=== PATIENT | male | born 1945 | race Caucasian/White ===

== ENCOUNTER → 2017-04-01 | Outpatient (CLI) | payer BC ==
[~2017-04-01] MED LIST: BARIUM SUSPENSION 2.1% (VANILLA SILQ) 450 ML PO ONE; CATHETER FLUSH 10 ML SYR IV PRN; DIFLORASONE DIA TOP; IOHEXOL 350 MG/ML 100 ML (OMNIPAQUE 350) VIAL IV ONE; LEVO75TA6 PO; NS 100 ML (IVPB) BAG IV ONE; TEST5GEL6 TD
[2017-04-01 09:52] LABS: ANION GAP 9 MMOL/L (5-14); BLOOD UREA NITROGEN 11 MG/DL (7-18); BUN/CREATININE RATIO 10; CALCIUM 9.6 MG/DL (8.5-10.1); CARBON DIOXIDE 25 MMOL/L (21-32); CHLORIDE 105 MMOL/L (98-107); CREATININE SERUM 1.14 MG/DL (0.60-1.30); GFR ESTIMATED > 60; GLUCOSE 105 MG/DL (70-105); POTASSIUM 4.7 MMOL/L (3.6-5.0); SODIUM 139 MMOL/L (135-145)
--- NOTE | 2017-04-01 11:14 | Diagnostic Imaging Report ---
PROCEDURE: CT of the abdomen with and without contrast and CT of the pelvis with contrast. TECHNIQUE: Precontrast acquisitions were acquired through the abdomen. Multiple contiguous axial images were obtained through the abdomen and pelvis after administration of intravenous contrast. INDICATION: Followup pancreatic lesion. COMPARISON: 11/04/2013. FINDINGS: Included portions of the lung bases are clear. CT abdomen: Again identified is multicystic lesion posterior to the pancreatic head and uncinate process. It measures approximately 3.3 x 6.5 cm in maximal axial dimension by approximately 5.8 cm in maximal CC dimension. This is in comparison to similar re-measurements on exam dated 11/04/2013 of 3 x 6 x 5.1, respectively. There is persistent prominence of the pancreatic duct. At its widest, the pancreatic duct measures approximately 10 mm on today's exam. This is essentially stable compared to 9-10 mm on prior study. There is no CT evidence of intrahepatic biliary ductal dilatation. No focal hepatic mass type lesions are seen. The adrenal glands, kidneys, and spleen have a normal CT appearance. Small bowel loops are nondistended. There are a few scattered colonic diverticula, but no CT evidence of acute diverticulitis. Patient is status post interval sigmoidectomy. There is a fat-containing periumbilical hernia. Ostium measures approximately 1.7 cm in diameter. Normal appendix cannot be adequately identified, but there is no pericecal inflammation. There is no loculated fluid collection, free fluid, nor free air within the abdomen. No abnormal mesenteric or retroperitoneal adenopathy is seen. There is mild calcified aortic and arterial atherosclerosis. Bony structures show no acute abnormalities. CT pelvis: Urinary bladder is unopacified. Prostate is enlarged. It measures approximately 5.7 x 4.4 cm. There is no loculated fluid collection, free fluid, nor free air within the pelvis. No abnormal lymph nodes are seen. Bony structures show no acute abnormalities. IMPRESSION: 1. Multicystic lesion posterior to the pancreatic head and uncinate process. This is felt to most likely be of pancreatic origin and may represent cystic pancreatic neoplasm, such as serous cystadenoma. There appears to have been some slight interval increase in size since prior exam. 2. Stable dilatation of the pancreatic duct. 3. Interval sigmoidectomy. 4. Fat-containing periumbilical hernia. 5. Prostatomegaly. Dictated by: Dictated on workstation # [id number]
== END ==
LOC: RAD 08:39
PROVIDERS: ATTEND Family Medicine
DX: K86.89 Other specified diseases of pancreas (principal); N40.1 Benign prostatic hyperplasia with lower urinary tract symptoms; K42.9 Umbilical hernia without obstruction or gangrene; Z85.09 Personal history of malignant neoplasm of other digestive organs
CPT/HCPCS: 36415; 74178; 80048

== ENCOUNTER → 2018-08-17 | Outpatient (CLI) | payer BC ==
[~2018-08-17] MED LIST changes: -BARIUM SUSPENSION 2.1% (VANILLA SILQ) 450 ML PO ONE; -CATHETER FLUSH 10 ML SYR IV PRN; +HOLD METFORMIN - RECEIVED CONTRAST 20 ML VIAL IV SCH; -NS 100 ML (IVPB) BAG IV ONE
--- NOTE | 2018-08-17 13:46 | Diagnostic Imaging Report ---
PROCEDURE: CT abdomen and pelvis with contrast. TECHNIQUE: Multiple contiguous axial images were obtained through the abdomen and pelvis after administration of intravenous contrast. Auto Exposure Controls were utilized during the CT exam to meet ALARA standards for radiation dose reduction. INDICATION: Followup pancreatic mass. COMPARISON: 04/01/2017. FINDINGS: Multiseptated cystic mass epicenter at the uncinate process and caudal aspect of the pancreatic head in aggregate measured 6.4 cm transverse x 3.3 cm maximal AP thickness and is not appreciably changed dating back to 2013 favoring a serous cystadenoma. Some ectasia of the pancreatic duct itself is not significantly changed at the neck measuring 9 mm unchanged. No evidence for pancreatitis. The adrenals are negative. The gallbladder is stable. No bile duct dilatation. There is a small hiatal hernia. No stone disease. Spleen and adrenals are negative. The kidneys are unobstructed. There is a fatty umbilical hernia chronic. There is no bowel obstruction. There is no ascites, abscess, hematoma, or other fluid collection. Prostate indents the bladder base unchanged. No abdominal pelvic mesenteric or retroperitoneal adenopathy. No acute bony pathology. IMPRESSION: Multiseptated cystic pancreatic lesion unchanged from 2013, most likely a serous cystadenoma. No change in pancreatic ductal dilatation. No new or soft tissue density mass. No adenopathy, no ascites, and no acute finding. Dictated by: Dictated on workstation # [id number]
== END ==
LOC: RAD 12:45
PROVIDERS: ATTEND Family Medicine
DX: K86.2 Cyst of pancreas (principal)
CPT/HCPCS: 74177

== ENCOUNTER → 2021-05-09 | Outpatient (CLI) | payer BC ==
[~2021-05-09] MED LIST changes: -HOLD METFORMIN - RECEIVED CONTRAST 20 ML VIAL IV SCH; -IOHEXOL 350 MG/ML 100 ML (OMNIPAQUE 350) VIAL IV ONE
--- NOTE | 2021-05-09 12:57 | Diagnostic Imaging Report ---
PROCEDURE: CT abdomen and pelvis without contrast. TECHNIQUE: Multiple contiguous axial images were obtained through the abdomen and pelvis without the use of intravenous contrast. Auto Exposure Controls were utilized during the CT exam to meet ALARA standards for radiation dose reduction. INDICATION: Pancreatic mass, follow-up. COMPARISON: Correlation is made with prior CT from 07/10/2020. FINDINGS: The lung bases are clear. Hepatic cyst adjacent to the gallbladder appears stable. There is no biliary ductal dilatation. Multiseptated and cystic mass involving the head of the pancreas and uncinate process appears stable in size. The pancreatic body and tail are unremarkable. No peripancreatic fluid collection is seen. The spleen is unremarkable. There is no adrenal mass. No renal calculi or hydronephrosis is seen. Aorta is calcified but nonaneurysmal. Bowel loops are normal in caliber. There is no obstruction. There is a fat-containing umbilical hernia. Bladder is unremarkable. Prostate is enlarged. There are fat-containing inguinal hernias bilaterally. Postop changes at the rectosigmoid junction are noted. Bony structures are nonacute. IMPRESSION: 1. Stable noncontrast CT of the abdomen and pelvis when compared with exam from 07/10/2020. Lobulated, septated cystic mass of the pancreatic head and uncinate is stable. 2. Fat-containing umbilical hernia and bilateral inguinal hernias. 3. Prostatomegaly. Dictated by: Dictated on workstation # [id number]
== END ==
LOC: RAD 11:45
PROVIDERS: ATTEND Family Medicine
DX: K86.2 Cyst of pancreas (principal); N40.0 Benign prostatic hyperplasia without lower urinary tract symptoms; K42.9 Umbilical hernia without obstruction or gangrene; K40.20 Bilateral inguinal hernia, without obstruction or gangrene, not specified as recurrent
CPT/HCPCS: 74176

== ENCOUNTER 2021-08-15 05:34 | Outpatient (CLI) | payer BC ==
[~2021-08-15] VITALS: Ht 172.7 cm; Wt 80.7 kg
[2021-08-15] MEDS ORDERED: LEVO100T7 PO (08:37)
== END 2021-08-15 08:46 | disposition home or self-care (01) ==
LOC: PREOP 05:34
PROVIDERS: ATTEND Internal Medicine
DX: Z01.818 Encounter for other preprocedural examination (principal)

== ENCOUNTER 2021-08-23 06:59 | Day surgery (SDC) | payer BC ==
--- NOTE | 2021-08-14 20:45 | HISTORY AND PHYSICAL ---
DATE OF SERVICE: COLONOSCOPY HISTORY AND PHYSICAL HISTORY OF PRESENT ILLNESS: The patient is a 76-year-old white male undergoing surveillance colonoscopy due to past history of colon cancer. It has been 7 years since his last colonoscopy, at which time no significant abnormalities were noted. He underwent left hemicolectomy per Dr. Murdock in 11/2013 for colon cancer. There was focal invasion of the muscularis with no lymph emely involvement. The patient reports there have been no significant changes in his health history since I last saw him in 2014. He denies abdominal pain, bright red blood per rectum, melena, or change in bowel habit. PAST MEDICAL HISTORY: Significant for thyroid replacement for Jolene's thyroiditis. When he had staging colonoscopy, he had a 5.2 cm cystic mass in the head of the pancreas compatible with cystadenoma. He has had no abdominal pain and there have been no reported changes. PAST SURGICAL HISTORY: Hemicolectomy is pertinent for an appendectomy in 1993. FAMILY HISTORY: Pertinent for colon cancer in one uncle diagnosed in his mid 70s. 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 Will be retiring at the end of this year. No past drinking or smoking history. REVIEW OF SYSTEMS: CONSTITUTIONAL: Denies night sweats, chills, fever, change in weight. GASTROINTESTINAL: As noted in the HPI. PULMONARY: Denies cough, wheezing or shortness of breath. CARDIOVASCULAR: Denies chest discomfort, orthopnea, PND, pedal edema or syncope. PHYSICAL EXAMINATION: GENERAL: Reveals an articulate well kempt white male, appears to be in no acute distress. VITAL SIGNS: Blood pressure 140/90, weight 178 pounds, stable. HEENT: Unremarkable. Sclerae nonicteric. CHEST: Clear to auscultation. CARDIOVASCULAR: Reveals a regular rate and rhythm without murmur, S3, or S4. ABDOMEN: Soft, supple without mass, organomegaly, or tenderness. EXTREMITIES: Reveal no cyanosis, clubbing, or edema. ASSESSMENT AND PLAN: The patient is being set up for surveillance colonoscopy due to past history of colon cancer. Prep instructions with Suprep kit were given and questions were answered. I thank you for the referral of this pleasant gentleman. Job ID: [id number] DocumentID: [id number] Dictated Date: 07/22/2021 16:05:31 Mechanical Repair Worker Date: 07/22/2021 16:26:48 Dictated By: ADEN MARCUS MD
[2021-08-23] VITALS (9 sets, daily range): BP systolic 153–176; BP diastolic 82–108
[~2021-08-23] VITALS: Ht 172.7 cm; Wt 80.7 kg
[~2021-08-23 06:59] MED LIST changes: +LEVO100T7 PO
[2021-08-23] MEDS ORDERED: LACTATED RINGERS 1,000 ML IV STA (07:11)
[2021-08-23] MEDS ORDERED: LIDOCAINE JELLY 2% 6 ML SYRINGE MM PRN (07:15)
--- NOTE | 2021-08-23 07:48 | Pre-Op Note & Conscious Sedat ---
Pre-Operative Progress Note H&P Reviewed The H&P was reviewed, patient examined and no changes noted. Date H&P Reviewed: August 23, 2021 Time H&P Reviewed: 07:40 Conscious Sedation Pre-Proced ASA Score 2 For ASA 3 and 4: Consider anesthesia and medical clearance. Also, for patients with a history of failed moderate sedation consider anesthesia. Airway Lungs Heart ASA score ASA 1: a normal healthy patient ASA 2: a patient with a mild systemic disease (mid diabetes, controlled hypertension, obesity ASA 3: a patient with a severe systemic disease that limits activity (angina, COPD, prior Myocardial infarction) ASA 4: a patient with an incapacitating disease that is a constant threat to life (CHF, renal failure) ASA 5: a moribund patient not expected to survive 24 hrs. (ruptured aneurysm) ASA 6: a declared brain- patient whose organs are being harvested. For emergent operations, add the letter E after the classification Mallampati Classification Grade 2 Sedation Plan Analgesia, Amnesia, Plan communicated to team members, Discussed options with patient/fam, Discussed risks with patient/fam The patient is an appropriate candidate to undergo the planned procedure, sedation, and anesthesia. The patient immediately re-assessed prior to indication. ADEN MARCUS MD August 23, 2021 07:48
--- NOTE | 2021-08-23 13:10 | OPERATIVE REPORT ---
DATE OF SERVICE: COLONOSCOPY SUMMARY INDICATION FOR THE PROCEDURE: Surveillance colonoscopy, history of colon cancer. DESCRIPTION OF PROCEDURE: The patient was placed in the left lateral decubitus position. Prior to undergoing colonoscopy, digital rectal evaluation was performed. Prostate is mild to moderately enlarged and anodular on digital inspection. No abnormalities were noted on inspection of anal canal or distal rectal vault. The colonoscope was then inserted into the rectum and under direct visualization advanced to cecum. The cecum was identified by identification of the ileocecal valve and cecal strap. Photographic documentation was obtained. Careful inspection was made as colonoscope withdrawn. Quality of prep was good. The patient tolerated the procedure well and per his request, was done under no sedation. FINDINGS: There was no evidence for internal or external hemorrhoids and the rectum was unremarkable. Several small sigmoid diverticulum were present. One distal sigmoid, 4 mm sessile polyp was noted. It is removed via cold forceps in its entirety and submitted for histopathology. The remainder of the sigmoid colon was unremarkable. The descending colon and splenic flexure were unremarkable. Present in the mid transverse colon was a sessile 2 mm polyp, which was removed via cold forceps polypectomy with no significant blood loss. The remainder of the transverse colon, ascending colon, and cecum were unremarkable. ASSESSMENT: Two small polyps were removed, one from the distal sigmoid and the other from the mid transverse colon. Several small sigmoid diverticulum were present without evidence of diverticulitis. The anastomotic margin noted in the distal sigmoid colon was unremarkable on gross inspection. We would advocate consideration for repeat surveillance colonoscopy in 5 years as long as there are no surprise on histopathology report. I thank you for the referral of this pleasant gentleman. Job ID: [id number] DocumentID: [id number] Dictated Date: 08/23/2021 08:26:36 Rehab Physician Date: 08/23/2021 13:10:26 Dictated By: ADEN MARCUS MD MTDD
== END 2021-08-23 08:35 | disposition home or self-care (01) ==
LOC: ENDO 06:59
PROVIDERS: ATTEND Internal Medicine
DX: Z12.11 Encounter for screening for malignant neoplasm of colon (principal); D12.5 Benign neoplasm of sigmoid colon; K63.5 Polyp of colon; K57.30 Diverticulosis of large intestine without perforation or abscess without bleeding; N40.0 Benign prostatic hyperplasia without lower urinary tract symptoms; E06.3 Autoimmune thyroiditis; Z85.038 Personal history of other malignant neoplasm of large intestine; Z90.49 Acquired absence of other specified parts of digestive tract; Z79.890 Hormone replacement therapy
CPT/HCPCS: 88305